=== PATIENT | male | born 1990 | race Hispanic/Latino ===

== ENCOUNTER 2020-08-28 21:40 | Emergency (ER) | payer OTHER ==
[~2020-08-28] VITALS: Ht 165.1 cm; Wt 90.7 kg
[2020-08-28 22:02] VITALS: BP 153/92
[2020-08-28] MEDS ORDERED: HYDROCODONE/ACETAMINOPHEN 5/325 MG TAB PO STA (22:41)
[2020-08-28] MEDS ORDERED: IBUP-2088 PO (23:00)
[2020-08-28] MEDS ORDERED: HYDROCODONE/ACETAMINOPHEN 5/325 MG TAB ONE (23:08)
== END 2020-08-28 23:12 | disposition home or self-care (01) ==
LOC: EDH 21:40
DX: S90.31XA Contusion of right foot, initial encounter (principal); S90.32XA Contusion of left foot, initial encounter; X58.XXXA Exposure to other specified factors, initial encounter; Y93.89 Activity, other specified; Y92.89 Other specified places as the place of occurrence of the external cause; Y99.8 Other external cause status
CPT/HCPCS: 73620

== ENCOUNTER 2020-09-20 08:55 | Emergency (ER) | payer SELFPAY ==
[~2020-09-20] VITALS: Ht 165.1 cm; Wt 90.7 kg
[~2020-09-20 08:55] MED LIST: IBUP-2088 PO
[2020-09-20 08:57] VITALS: BP 156/114
[2020-09-20] MEDS ORDERED: KETOROLAC 60 MG VIAL (30MG/ML) IM SCH (10:00)
[2020-09-20] MEDS ORDERED: ACETAMINOPHEN 500 MG TABLET ONE (10:11)
[2020-09-20] MEDS ORDERED: ACETAMINOPHEN 500 MG TABLET PO SCH (10:30)
[2020-09-20] MEDS ORDERED: NAPR-1179 PO (10:56)
== END 2020-09-20 11:31 | disposition home or self-care (01) ==
LOC: EDH 08:55
DX: M79.642 Pain in left hand (principal); M25.532 Pain in left wrist; Z79.899 Other long term (current) drug therapy; W18.39XA Other fall on same level, initial encounter; Y93.89 Activity, other specified; Y92.89 Other specified places as the place of occurrence of the external cause; Y99.8 Other external cause status
CPT/HCPCS: 29125; 73110; 73130; 99284; J1885; 29105

== ENCOUNTER 2021-08-15 06:42 | Emergency (ER) | payer OTHER ==
[~2021-08-15 06:42] MED LIST changes: +NAPR-1179 PO
[2021-08-15 08:00] LABS: BASOPHILS % (AUTO) 0.1 % (0.0-5.0); EOSINOPHILS % (AUTO) 2.6 % (0.0-8.0); LYMPHOCYTES % (AUTO) 24.3 % (21.0-51.0); MEAN CORPUSCULAR HEMOGLOBIN 30.6 pg (27.0-33.0); MEAN CORPUSCULAR HGB CONC 32.9 g/dL (32.0-36.0); MEAN CORPUSCULAR VOLUME 92.9 fL (79-99); MONOCYTES % (AUTO) 7.5 % (3.0-13.0); PLATELET COUNT (AUTO) 309 K/uL (130-400); RED BLOOD CELL COUNT(AUTO) 4.09 MIL/uL (4.50-6.20); RED CELL DISTRIBUTION WIDTH 13.2 % (11.0-15.5); WHITE BLOOD COUNT (AUTO) 8.7 K/uL (4.8-10.8)
[2021-08-15 08:11] LABS: APPEARANCE,URINE Clear (CLEAR); BILIRUBIN,URINE Negative (NEGATIVE); COLOR,URINE Yellow (YELLOW); GLUCOSE, URINE (UA) Negative (NEGATIVE); KETONES,URINE Negative (NEGATIVE); LEUKOCYTE ESTERASE ,URINE Negative (NEGATIVE); NITRATE,URINE Negative (NEGATIVE); OCCULT BLOOD,URINE Negative (NEGATIVE); PH,URINE 5.5 (5.0-8.0); PROTEIN,URINE Negative (NEGATIVE); UROBILINOGEN,URINE 0.2 mg/dL (0.2-1.0)
[2021-08-15 08:15] LABS: ALBUMIN 3.8 g/dL (3.5-5.0); BILIRUBIN,TOTAL 0.1 mg/dL (0.2-1.0); CREATININE 0.9 mg/dL (0.5-1.5); POTASSIUM 3.8 mmol/L (3.5-5.1); TOTAL PROTEIN, SERUM 7.5 g/dL (6.0-8.3)
[2021-08-15] MEDS ORDERED: 0.9%NACL 1000ML 1,000 ML IV ONE (08:30)
[2021-08-15] MEDS ORDERED: FAMOTIDINE 20MG VIAL IV ONE (08:30)
[2021-08-15] MEDS ORDERED: KETOROLAC 30MG VIAL (30MG/ML) IVP ONE (08:30)
[2021-08-15] MEDS ORDERED: MORPHINE 4 MG SYG IVP ONE (11:00)
[2021-08-15 12:55] VITALS: BP 118/76
[2021-08-15] MEDS ORDERED: FAMO-136 PO (14:18)
[2021-08-15] MEDS ORDERED: ONDA4TAB10 PO (14:18)
== END 2021-08-15 14:36 | disposition home or self-care (01) ==
LOC: EDH 06:42
DX: R10.13 Epigastric pain (principal); R19.7 Diarrhea, unspecified; Z79.899 Other long term (current) drug therapy
CPT/HCPCS: 36415; 74176; 80053; 81003; 82550; 83690; 85025; 96361; 96374; 96375; 99284; J1885; J2270; J3490; J7030